=== PATIENT | female | born 1950 | race Caucasian/White ===

== ENCOUNTER 2023-09-11 10:23 | Emergency (ER) | payer MEDICARE, OTHER ==
[~2023-09-11] VITALS: Ht 154.9 cm; Wt 64.9 kg
[2023-09-11 10:40] VITALS: BP 178/89; PULSE 72; RESP 18; TEMP 97.3; O2SAT 99
[2023-09-11] MEDS: KETOROLAC 30 MG/ML VIAL IM ONE (12:19)
[2023-09-11 13:05] VITALS: BP 175/89; PULSE 72; RESP 18; TEMP 97.3; O2SAT 99
== END 2023-09-11 13:04 | disposition home or self-care (01) ==
LOC: MED 10:23
DX: M76.61 Achilles tendinitis, right leg (principal); M72.2 Plantar fascial fibromatosis; J44.9 Chronic obstructive pulmonary disease, unspecified; I10 Essential (primary) hypertension; E78.5 Hyperlipidemia, unspecified; M81.0 Age-related osteoporosis without current pathological fracture
CPT/HCPCS: 73610; 73630; 96372; 99284; J1885